=== PATIENT | male | born 1990 | race African-American/Black ===

== ENCOUNTER 2018-01-05 20:10 | Emergency (ER) | payer SELFPAY ==
[2018-01-05 21:35] LABS: Bilirubin Negative (Negative); Blood, Urine Negative (Negative); Clarity CLOUDY (Clear); Glucose, Urine (Dipstick) Negative (Negative); Leukocyte Negative (Negative); Nitrite Negative (Negative); Protein, Urine (Dipstick) Negative (Neg-Trace); Specific Gravity, Urine 1.028 (1.002-1.036); pH, Urine 6.5 (5.0-9.0)
== END 2018-01-05 23:12 | disposition home or self-care (01) ==
LOC: ERS 20:10
DX: N32.89 Other specified disorders of bladder (principal); R03.0 Elevated blood-pressure reading, without diagnosis of hypertension; F17.210 Nicotine dependence, cigarettes, uncomplicated
CPT/HCPCS: 81003; 99284

== ENCOUNTER 2018-01-19 18:07 | Emergency (ER) | payer SELFPAY ==
[2018-01-19 18:28] LABS: Bilirubin Negative (Negative); Blood, Urine Negative (Negative); Clarity Clear (Clear); Glucose, Urine (Dipstick) Negative (Negative); Leukocyte Negative (Negative); Nitrite Negative (Negative); Protein, Urine (Dipstick) Negative (Neg-Trace); Specific Gravity, Urine 1.025 (1.005-1.030); Urobilinogen 0.2 mg/dL (0.2-1.0)
== END 2018-01-19 18:35 | disposition home or self-care (01) ==
LOC: SCSER 18:07
DX: N32.89 Other specified disorders of bladder (principal); Z71.6 Tobacco abuse counseling; Z87.891 Personal history of nicotine dependence
CPT/HCPCS: 81003; 99406

== ENCOUNTER 2018-06-02 17:49 | Emergency (ER) | payer SELFPAY ==
[2018-06-02] MEDS ORDERED: Acetaminophen 325 MG TAB ONE (18:18)
[2018-06-02] MEDS ORDERED: Ibuprofen 200 MG TAB ONE (18:18)
[2018-06-02] MEDS ORDERED: Diazepam 5 MG TAB ONE (18:19)
== END 2018-06-02 18:32 | disposition home or self-care (01) ==
LOC: ERS 17:49
DX: M54.5 Low back pain (principal); Z87.891 Personal history of nicotine dependence
CPT/HCPCS: 99283

== ENCOUNTER 2021-06-13 16:23 | Emergency (ER) | payer SELFPAY | END 2021-06-13 17:30 | disposition home or self-care (01) | LOC: ERS 16:23 | DX: S39.012A Strain of muscle, fascia and tendon of lower back, initial encounter (principal); X50.0XXA Overexertion from strenuous movement or load, initial encounter; F17.210 Nicotine dependence, cigarettes, uncomplicated | CPT/HCPCS: 99283 ==